=== PATIENT | female | born 1985 | race Caucasian/White ===

== ENCOUNTER → 2018-02-24 | Day surgery (SDC) | payer OTHER ==
[2018-02-07 11:43] VITALS: BMI 41.0
[2018-02-09 13:49] VITALS: BMI 41.0
--- NOTE | 2018-02-09 14:07 | PAT Medication Instructions ---
Service Date Feb 09, 2018. Current Home Medication List Albuterol Hfa (Ventolin Hfa), 2 PUFFS INH Q6H PRN for Shortness of Breath Amphetamine-Dextroamphetamine 20MG (Adderall 20MG), 20 MG PO BID Aspirin (Aspirin Ec), 81 MG PO QAM Epinephrine (Epipen), 0.3 MG IM UD Etonogestrel/Ethinyl Estradiol (Nuvaring), 1 EA VAGRING MONTHLY Levothyroxine Sodium (Levothyroxine Sodium), 25 MCG PO HS Multivitamin (Multivitamin), 1 TAB PO QAM Rizatriptan Benzoate (Maxalt), Unknown Dose PO UD Zolpidem Tartrate (Ambien), 5 MG PO HS PRN for Sleep Medication Instructions For Your Scheduled Surgery - Continue as directed: Etonogestrel/Ethinyl Estradiol (Nuvaring), 1 EA VAGRING MONTHLY - Hold the following medications the morning of surgery: Amphetamine-Dextroamphetamine 20MG (Adderall 20MG), 20 MG PO BID Multivitamin (Multivitamin), 1 TAB PO QAM - Take the following medications the morning of surgery with a sip of water: Albuterol Hfa (Ventolin Hfa), 2 PUFFS INH Q6H PRN for Shortness of Breath i(if needed) Aspirin (Aspirin Ec), 81 MG PO QAM (okay to continue per surgeon) Epinephrine (Epipen), 0.3 MG IM UD Levothyroxine Sodium (Levothyroxine Sodium), 25 MCG PO HS Rizatriptan Benzoate (Maxalt), Unknown Dose PO UD (if needed) - Take the following medications as scheduled the night before surgery: Zolpidem Tartrate (Ambien), 5 MG PO HS PRN for Sleep (if needed) Rizatriptan Benzoate (Maxalt), Unknown Dose PO UD (if needed) Amphetamine-Dextroamphetamine 20MG (Adderall 20MG), 20 MG PO BID Albuterol Hfa (Ventolin Hfa), 2 PUFFS INH Q6H PRN for Shortness of Breath (if needed) If you have any questions please call us at [phone] or [phone] or [phone]
[2018-02-09 14:37] LABS: BASO % 0.2 %; BASO ABS # 0.02 K/uL (0-0.2); EOS % 2.4 %; EOS ABS # 0.25 K/uL (0-0.5); HEMATOCRIT 41.2 % (37-47); HEMOGLOBIN 13.5 g/dL (12.0-16.0); IG# 0.02 K/uL (0.00-0.02); LYMPH % 25.4 %; LYMPH ABS # 2.66 K/uL (1.2-3.4); MEAN CELL VOLUME 88.4 fL (80-100); MEAN CORPUSCULAR HGB CONC 32.8 g/dl (32-36); MEAN PLATELET VOLUME 9.8 fL (7.4-10.4); MONO % 5.2 %; MONO ABS # 0.55 K/uL (0.11-0.59); NEUT % 66.6 %; NEUT ABS # 6.99 K/uL (1.4-6.5); PLATELET COUNT 282 K/uL (130-400); RED CELL DISTRIBUTION WIDTH CV 13.7 % (11.5-14.5); RED CELL DISTRIBUTION WIDTH SD 44.1 fL (36.4-46.3); WHITE BLOOD COUNT 10.49 K/uL (4.8-10.8)
--- NOTE | 2018-02-09 14:43 | DIAGNOSTIC IMAGING REPORT ---
CHEST 2 VIEWS ROUTINE CLINICAL HISTORY: Preoperative chest COMPARISON STUDY: No previous studies for comparison. FINDINGS: The cardiac and mediastinal contours are normal. There is no evidence of focal pulmonary consolidation. There is no evidence of failure. No pleural effusions are visualized.[ IMPRESSION: No active disease in the chest. Electronically signed by: Ramakrishna Patricio M.D. 02/09/2018 2:42 PM Dictated Date/Time: 02/09/2018 2:42 PM
[2018-02-09 14:45] LABS: PTT PATIENT 26.6 SECONDS (21.0-31.0)
[2018-02-09 16:00] LABS: CALCIUM 9.3 mg/dl (8.5-10.1); CREATININE 0.77 mg/dl (0.60-1.20); POTASSIUM 3.9 mmol/L (3.5-5.1)
--- NOTE | 2018-02-23 18:44 | History and Physical ---
History & Physical Date Feb 23, 2018. Chief Complaint left ankle pain History of Present Illness The patient is a 32 year old female with complaints of chronic lateral left ankle pain of the past 4 years. She was treated conservatively but failed all conservative tx. She is now being set up for surgical tx. Past Medical/Surgical History PMH: Asthma, anxiety, hypothyroidism, obesity Past surgical hx: none social hx: 1/2 ppd smoker for 20 years. Family hx: noncontributory. Allergies Coded Allergies: Penicillins (Verified Allergy, Unknown, MOUTH WHITE PATCHES, SLEEPY, UNABLE TO AROUSE, 02/21/18) Yellow Jacket (Verified Allergy, Unknown, ANAPHALAXIS, 02/07/18) Mushroom (Verified Adverse Reaction, Intermediate, VOMITING, 02/21/18) Fish (Verified Adverse Reaction, Unknown, CERTAIN FISH ONLY -- VOMITTING, 02/21/18) Home Medications Scheduled Amphetamine-Dextroamphetamine 20MG (Adderall 20MG), 20 MG PO BID Aspirin (Aspirin Ec), 81 MG PO QAM Epinephrine (Epipen), 0.3 MG IM UD Etonogestrel/Ethinyl Estradiol (Nuvaring), 1 EA VAGRING MONTHLY Levothyroxine Sodium (Levothyroxine Sodium), 25 MCG PO HS Multivitamin (Multivitamin), 1 TAB PO QAM Rizatriptan Benzoate (Maxalt), Unknown Dose PO UD Scheduled PRN Albuterol Hfa (Ventolin Hfa), 2 PUFFS INH Q6H PRN for Shortness of Breath Zolpidem Tartrate (Ambien), 5 MG PO HS PRN for Sleep Physical Examination Skin: warm/dry, no rash Eyes: normal inspection ENT: normal ENT inspection Head: normocephalic, atraumatic Neck: supple, no adenopathy, trachea midline Respiratory/Chest: lungs clear, normal breath sounds, no respiratory distress Cardiovascular: regular rate, rhythm Abdomen / GI: normal bowel sounds, non tender Extremities: + pertinent finding (Left ankle: Tender at the lateral ankle. Swelling lateral ankle. Painful PROM. + laxity with anterior drawer and talar tilt. ) Neurologic/Psych: no motor/sensory deficits, alert, oriented x 3 Diagnosis Left ankle instability Plan of Treatment Schedule a left ankle scope with synovectomy, open modified Brostrom with Arthrex internal brace for 02.24.18. All potential risks, benefits, complications, alternatives, and rehab have been discussed with the patient and she wishes to proceed. ASA 81 mg BID x 30 days for DVT prophylaxis.
[~2018-02-24] VITALS: Ht 165.1 cm; Wt 114.0 kg
[~2018-02-24] MED LIST: AMPH20TA2 PO; ASPI81TA28 PO; ATROPINE SULFATE 0.1 MG/ML 5ML SYR IV PRN; BACITRACIN 50000 UNIT VIAL ONE; BUPIVACAINE/EPINEPHRINE 0.5% MPF 1:200,000 30 ML VIAL ONE; CHECK SCOPOLAMINE PATCH PLACEMENT SCH; CLINDAMYCIN 600 MG/54 ML D5W IV SCH; DEXAMETHASONE SOD INJ 4 MG/ML VIAL ONE; EPP3/2 IM; ETONMIS VAGRING; EpHEDrine SULFATE INJ 50 MG/ML AMP IV PRN; EpINEphrine HCL INJ 1 MG/ML 1ML SYRINGE ONE; FENTANYL CITRATE INJ 50 MCG/1 ML 2 ML VIAL IV PRN; FENTANYL CITRATE INJ 50 MCG/1 ML 2 ML VIAL ONE; HYDR-5688 PO; HYDROmorphone INJ 0.5 MG/0.5 ML SYR IV PRN; LACTATED RINGER'S 1000ML 1,000 ML IV SCH; LEVO25TA5 PO; LIDOCAINE 2% 20 MG/ML 5ML SYR ONE; MIDAZOLAM HCL 1 MG/ML 2ML VIAL ONE; MULT-506 PO; MoRPHine SULFATE 2 MG/ML CARP IV PRN; ONDANSETRON INJ 2 MG/ML 2 ML VIAL IV PRN; ONDANSETRON INJ 2 MG/ML 2 ML VIAL ONE; PROPOFOL IV EMULSION 10 MG/ML 20 ML VIAL ONE; RIZA5TAB10 PO; ROPIVACAINE 0.5% 5 MG/ML 30 ML VIAL ONE; SCOPOLAMINE 1.5 MG TDSY TD ONE; SCOPOLAMINE 1.5 MG TDSY TD SCH; VNTHFA/IN INH; ZOLP5TAB PO
[2018-02-24 07:59] VITALS: BP 120/82; PULSE 87; TEMP 36.9; O2SAT 98; Ht 165.1 cm; Wt 114.0 kg
--- NOTE | 2018-02-24 08:15 | History & Physical Bridge Note ---
H&P Re-Evaluation Bridge Note: I have examined the patient, reviewed the History & Physical and in the interval since the performance of the History & Physical I have noted the following changes of clinical significance: No changes noted
--- NOTE | 2018-02-24 12:15 | [facility] Post Operative Brief Note ---
Immediate Operative Summary Operative Date Feb 24, 2018. Pre-Operative Diagnosis Left ankle lateral ligament instability, ATFL tear Post-Operative Diagnosis Left ankle lateral ligament instability, ATFL tear Synovitis ankle Procedure(s) Performed 1. Left ankle arthroscopy with synovectomy. 2. Left Open modified Brostrom procedure with Arthrex internal brace Surgeon Dr. Tay Orourke DO [facility] Surgeon(s) William Kumar PA-c Estimated Blood Loss 2ml Findings Consistent with Post-Op Diagnosis Specimens None Drains None Anesthesia Type General Regional Complication(s) none Disposition Accompanied Pt To Recover: no Disposition: Recovery Room / PACU
--- NOTE | 2018-02-24 12:45 | Discharge Instructions ---
Discharge Instructions Date of Service Feb 24, 2018. Visit Reason for Visit: Left Ankle Instability Discharge Discharge Diagnosis / Problem: Left Ankle Instability Discharge Goals Goal(s): Decrease discomfort, Improve function, Increase independence Activity Recommendations Activity Limitations: per Instructions/Follow-up section Weightbearing Status: Left non-weightbearing Anesthesia . Post Anesthesia Instructions: If you have had General Anesthesia or IV Sedation: * Do not drive today. * Resume driving when surgeon permits. * Do not make important decisions or sign legal documents today. * Call surgeon for: 1. Temperature elevations greater than 101 degrees F. 2. Uncontrollable pain. 3. Excessive bleeding. 4. Persistent nausea and vomiting. 5. Medication intolerance (nausea, vomiting or rash). * For nausea and vomiting use only clear liquids such as: tea, soda, bouillon until nausea subsides, then gradually increase diet as tolerated. * If you have any concerns or questions, call your surgeon's office. If physician is unavailable and it is an emergency, call 911 or go to the nearest emergency room. . Instructions / Follow-Up Instructions / Follow-Up ACTIVITY RECOMMENDATIONS: Limitations: Non weightbearing on Left Foot SPECIAL CARE INSTRUCTIONS: * Some drainage onto the dressing is normal and is no cause for alarm. * Some swelling is natural especially after walking. * When resting, keep your foot elevated above the level of your heart. * Call [facility] if you notice: -Increased drainage -Fever over 101 degrees F -Severe constant pain * You can shower if you keep a waterproof covering over the splint/dressing. No tub baths. BANDAGE: * Leave bandage/cast in place unless otherwise directed. * Keep bandage/cast dry at all times. FOLLOW UP VISIT WITH DR. VENTURA If appointment is not already scheduled: Please call [facility] after you get home today to schedule a follow-up appointment for 10-[address] Ventura at . Diet Recommendations Recommended Home Diet: resume previous diet Procedures Procedures Performed: 1. Left ankle arthroscopy with synovectomy. 2. Left Open modified Brostrom procedure with Arthrex internal brace Pending Studies Studies pending at discharge: no Medical Emergencies . Who to Call and When: Medical Emergencies: If at any time you feel your situation is an emergency, please call 911 immediately. . Non-Emergent Contact Non-Emergency issues call your: Surgeon Call Non-Emergent contact if: temperature is above 101.5, your pain is not controlled, your pain is worsening, wound has increased drainage, wound has increased redness . . "Provider Documentation" section prepared by William Kumra. . [place] Drug Monitoring Program Search Results: patient reviewed within database, no issues identified
--- NOTE | 2018-02-24 13:11 | Anesthesiology Progress Note ---
Anesthesia Post Op Note Date & Time Feb 24, 2018 at 13:10 Vital Signs Pain Intensity: 0 Vital Signs Past 12 Hours Date Time Temp Pulse Resp B/P (MAP) Pulse Ox O2 Delivery O2 Flow Rate FiO2 02/24/18 13:00 80 17 124/66 95 Room Air 02/24/18 12:50 70 14 111/70 98 Oxymask 10 02/24/18 12:40 80 17 138/78 97 Oxymask 02/24/18 12:33 36.0 85 17 133/68 95 Oxymask 10 02/24/18 07:59 36.9 87 20 120/82 (95) 98 Room Air Notes Mental Status: alert / awake / arousable, participated in evaluation Pt Amnestic to Procedure: Yes Nausea / Vomiting: adequately controlled Pain: adequately controlled Airway Patency, RR, SpO2: stable & adequate BP & HR: stable & adequate Hydration State: stable & adequate Anesthetic Complications: no major complications apparent Anesthetic Complications: block functioning well.
[2018-02-24 13:16] VITALS: BP 141/62; PULSE 89; TEMP 36.6; O2SAT 93
[2018-02-24 13:39] VITALS: BP 128/78; TEMP 36.6; O2SAT 92
[2018-02-24 13:45] VITALS: BP 141/70; PULSE 101; O2SAT 98
[2018-02-24 14:15] VITALS: BP 133/63; PULSE 88; TEMP 36.6; O2SAT 94
--- NOTE | 2018-02-24 14:17 | OPERATIVE REPORT ---
DATE OF OPERATION: 02/24/2018 PREOPERATIVE DIAGNOSES: 1. Right ankle lateral ligament instability. 2. Anterior talofibular ligament tear. 3. Synovitis of the ankle. POSTOPERATIVE DIAGNOSES: 1. Left ankle lateral ligament instability. 2. Anterior talofibular ligament tear. 3. Synovitis. PROCEDURE: 1. Left ankle arthroscopy with synovectomy. 2. Open modified Brostrom reconstruction with Arthrex internal brace. SURGEON: Dr. Orourke. PAIN MANAGEMENT PHYSICIAN: William Kumar PA-C. ANESTHESIA: General LMA with popliteal block. SPECIMENS: None. DRAINS: None. COMPLICATIONS: None. BLOOD LOSS: 2 mL. PERTINENT HISTORY: This is a 32-year-old female who sustained a twisting injury to her left ankle. She attempted and failed conservative management including use of an assistive device, use of a brace, anti-inflammatories, rest, ice, elevation, failure of physician directed home exercises, failure of physical therapy. She had an MRI which demonstrated tear of the anterior talofibular ligament as well as clinical instability with physical exam. The patient was then scheduled for surgery as indicated. All potential risks, benefits, complications, alternatives, rehab, potential for incomplete relief of symptoms, need for further surgery, DVT, PE, , persistent pain, swelling, scarring, weakness, neurovascular injury, wound complications, hardware failure were discussed with the patient. The patient decided to proceed with the procedure as indicated. DETAILS OF PROCEDURE: Patient was taken to operative suite after popliteal block had been administered. Patient was then taken to the operative suite, placed supine on the operating table. I reviewed consent and identification of proper operative site. Patient was anesthetized, LMA was placed. Tourniquet was placed high on the left thigh over cast padding. Left lower extremity was then sterilely prepped and draped in the usual fashion and then injected with approximately 10 mL of 0.5% Marcaine with epinephrine. Next, the limb was then elevated and exsanguinated with an Esmarch bandage, tourniquet inflated to 350 mmHg. Next, a #11 blade scalpel was used to make an incision just medial to the tibialis anterior at the level of the ankle joint followed by use of a hemostat to open the portal site and then placement of blunt trocar and sleeve. Next, sterile Kerlix was applied around the ankle then around the surgeon's waist to apply indirect traction. Next, the arthroscope was inserted into the left ankle and sequential diagnostic arthroscopy commenced noting synovitis throughout the anterior compartment of the ankle joint. No loose bodies encountered. Next, an 18 gauge spinal needle was used to localize the lateral portal site followed by incision with 11 blade scalpel and careful dissection with a hemostat. Next, a blunt-tip probe was inserted in the joint and the chondral surfaces of the tibia and talus were probed and noted to be stable and intact. No loose bodies, no osteochondral defects. Next, a 3.5 mm sucker shaver was introduced and a synovectomy was then performed of the left ankle. Medial and lateral gutters were inspected and noted to be unremarkable. Next, the arthroscope and sucker shaver were then removed from the joint. Excess fluid was expressed from the joint. The portal sites were closed using interrupted 4-0 nylon sutures. Next, a 15 blade scalpel was used to make an incision at the distal lateral aspect of the fibula. This curvilinear incision was then deepened to subcutaneous tissue with a 15 blade scalpel. Small veins were identified and then cauterized with electrocautery. Next, the superficial peroneal retinaculum was identified and then incised, retracted with a house retractor and protected. Next, the remnant of the anterior talofibular ligament and the lateral capsule was then incised from the distal lateral aspect of the fibula, was elevated and then moderate sized exostosis was noted at the distal lateral aspect of the fibula. An exostectomy was then performed with a rongeur and the distal lateral aspect of the fibula was then decorticated with a rongeur to bleeding bone. Next, the drill for the 4.75 mm SwiveLock was then drilled into the lateral process of the talus, taking care to avoid the talofibular and the subtalar articulations. Next, this was tapped and then a 4.75 mm SwiveLock was then placed into the talus. Next, the free needle was used to weave the FiberTapes through the remnant of the anterior talofibular ligament and the lateral capsule and this was then sutured through the tissue at the distal lateral aspect of the fibula under the subperiosteal tissue. Next, a supervisor of way hole was drilled for the Bio-Tenodesis screw in the lateral distal fibula followed by placement of a #2 FiberWire suture into the calcaneofibular ligament to plicate it and sutures were not tied at this time for the calcaneofibular ligament. Next, the foot was held in neutral dorsiflexion and slight eversion followed by threading of the FiberTapes through the Bio-Tenodesis screw which was then placed in the lateral distal aspect of the fibula, taking care to avoid over-tensioning with a small mosquito under the FiberTapes. Next, the Bio-Tenodesis screw was then firmly fixed into the distal lateral fibula and this stabilized the FiberTapes and the internal brace. Excess FiberTape was then cut with 15 blade scalpel and the #2 FiberWire stay sutures in the SwiveLock was then passed through the superficial peroneal retinaculum and a [id number] closure was performed of the periosteal tissue at the distal lateral aspect of the fibula. Next, calcaneofibular ligament plication suture was then tied and cut with the foot held in neutral dorsiflexion with eversion. Lateral ligament complex had been completely stabilized. This was irrigated with sterile normal saline and excess suture was then cut with 15 blade scalpel. The peroneal tendon sheath was then closed using 2-0 Vicryl, the dermis was closed using buried interrupted 3-0 Vicryl, skin was closed using 4-0 nylon. A sterile compressive dressing and bulky Neeraj Funes plaster splint was applied overwrapped with Deuce wrap in neutral dorsiflexion. The tourniquet was released. Patient was awakened and taken to recovery in stable condition. I attest to the content of the Intraoperative Record and any orders documented therein. Any exception s are noted below.
== END | disposition home or self-care (01) ==
LOC: C.ACU 07:33
PROVIDERS: ATTEND Orthopaedic Surgery Sports Medicine
DX: M25.372 Other instability, left ankle (principal); M65.9 Synovitis and tenosynovitis, unspecified; S93.491A Sprain of other ligament of right ankle, initial encounter; X50.1XXA Overexertion from prolonged static or awkward postures, initial encounter; J45.909 Unspecified asthma, uncomplicated; F17.200 Nicotine dependence, unspecified, uncomplicated; E03.9 Hypothyroidism, unspecified; E66.9 Obesity, unspecified; Z68.41 Body mass index [BMI] 40.0-44.9, adult; Z79.82 Long term (current) use of aspirin; Z88.0 Allergy status to penicillin; Z88.5 Allergy status to narcotic agent